=== PATIENT | male | born 1955 | race Hispanic/Latino ===

== ENCOUNTER 2018-05-15 10:33 | Inpatient (IN) | payer SELFPAY ==
[2018-05-15] MEDS ORDERED: NA CHLORIDE 0.9% 1,000 ML ONE ×2 (10:54→14:34)
[2018-05-15] MEDS ORDERED: ONDANSETRON 4 MG/2 ML VIAL ONE (11:10)
[2018-05-15] MEDS ORDERED: MORPHINE 4 MG/ML SYR ONE (11:10)
[2018-05-15] MEDS ORDERED: FAMOTIDINE 20 MG/2 ML VIAL IV ONE (11:10)
[2018-05-15 11:13] LABS: Absolute Monocytes 1.1 K/uL (0.1-1.3); Absolute Neutrophil 9.9 K/uL (1.8-8.0); Basophils % 0.2 % (0-1.3); Eosinophils % 0.4 % (0-4.4); Hematocrit 46.1 % (39.6-49.0); Lymphocytes % 14.9 % (15.3-44.8); MCH 34.9 pg (27.0-35.0); MCV 98.7 fL (80-100); MPV 7.1 fL (7.6-11.3); Monocytes % 8.7 % (3.3-12.3); RBC Red Blood Cell Count 4.67 M/uL (4.33-5.43)
[2018-05-15 11:26] LABS: Protime INR 1.09
[2018-05-15 11:27] LABS: ALT/SGPT 47 U/L (12-78); AST/SGOT 28 U/L (15-37); Albumin 4.6 g/dL (3.4-5.0); Alkaline Phosphatase 123 U/L (45-117); BUN Blood Urea Nitrogen 23 mg/dL (7-18); Bicarbonate 25 mmol/L (21-32); Bilirubin Direct 0.3 mg/dL (0-0.2); Bilirubin Total 0.9 mg/dL (0.2-1.0); Glucose Level 141 mg/dL (74-106); Lipase 79 U/L (73-393); Magnesium 2.7 mg/dL (1.8-2.4); NT PRO-BNP 93 pg/mL (<125); Potassium 3.5 mmol/L (3.5-5.1); Protein, Total 9.3 g/dL (6.4-8.2); Sodium Level 139 mmol/L (136-145); Troponin (Emerg Dept Use Only) < 0.02 ng/mL (0.0-0.045)
--- NOTE | 2018-05-15 11:42 | RAD REPORT ---
EXAM DESCRIPTION: RAD - Chest Single View - 05/15/2018 11:28 am CLINICAL HISTORY: ABDOMINAL DISTENTION Chest pain. COMPARISON: No comparisons FINDINGS: Portable technique limits examination quality. The lungs are grossly clear. The heart is normal in size. No displaced fractures. IMPRESSION: No acute intrathoracic process suspected.
--- NOTE | 2018-05-15 13:09 | RAD REPORT ---
EXAM DESCRIPTION: CTAbdomen Pelvis W Contrast - 05/15/2018 12:54 pm CLINICAL HISTORY: Abdominal pain. ABD PAIN COMPARISON: No comparisons TECHNIQUE: Biphasic CT imaging of the abdomen and pelvis was performed with 100 ml non-ionic IV cont rast. All CT scans are performed using dose optimization technique as appropriate and may include automated exposure control or mA/KV adjustment according to patient size. FINDINGS: A few small nonspecific pulmonary nodules are seen in the lung bases, most prominent in th e right lower lobe measuring 5 mm.Linear subsegmental atelectasis is also present in both lung bases. Small hiatal hernia is noted. Diffuse fatty liver is noted with cholecystectomy clips. The spleen, pancreas, adrenal glands and kid neys are within normal limits. Multiple dilated small bowel loops are present in the mid abdomen this is compatible with mechanical small bowel obstruction. Point of transition is suspected in the right lower quadrant region (image 6 ). No free intraperitoneal air. No significant free fluid collections or abscess. The appendix is not well seen. Significant fecal retention is seen in the colon. No suspicious bony findings. IMPRESSION: Moderate mechanical small bowel obstruction is present as described. No evidence of free air or abscess.
--- NOTE | 2018-05-15 13:31 | ER ---
Nurse's Notes [facility] Name: Kana Richmond Age: 62 yrs Sex: Male : 1955 Arrival Date: 05/15/2018 Time: 10:37 Bed 8 Private MD: None, None Diagnosis: Abdominal tenderness;Other intestinal obstruction-mechanical small bowel Presentation: 05/15 10:46 Presenting complaint: Patient states: Abdominal pain in umbilical area and vomiting ph since last night, denies diarrhea or fever. Transition of care: patient was not received from another setting of care. Onset of symptoms was May 15, 2018. Risk Assessment: Do you want to hurt yourself or someone else? Patient reports no desire to harm self or others. Initial Sepsis Screen: Does the patient meet any 2 criteria? No. Patient's initial sepsis screen is negative. Does the patient have a suspected source of infection? No. Patient's initial sepsis screen is negative. Care prior to arrival: None. 10:46 Method Of Arrival: Ambulatory ph 10:46 Acuity: SABRINA 3 ph Historical: - Allergies: 10:47 No Known Allergies; ph - PMHx: 10:47 Hypertension; ph - PSHx: 10:47 None; ph - Immunization history:: Adult Immunizations unknown. - Family history:: not pertinent. - Social history:: Smoking status: Patient/guardian denies using tobacco. - Ebola Screening: : Patient negative for fever greater than or equal to 101.5 degrees Fahrenheit, and additional compatible Ebola Virus Disease symptoms Patient denies exposure to infectious person Patient denies travel to an Ebola-affected area in the 21 days before illness onset No symptoms or risks identified at this time. Screenin:55 Abuse screen: Denies threats or abuse. Denies injuries from another. Nutritional sg screening: No deficits noted. On no prescribed diet. Tuberculosis screening: No symptoms or risk factors identified. Never had TB. Fall Risk None identified. Assessment: 10:50 General: Appears in no apparent distress. well groomed, well developed, well nourished, sg Behavior is calm, cooperative, appropriate for age. 10:50 Pain: Complains of pain in left upper quadrant and right upper quadrant and epigastric sg area Quality of pain is described as aching, pressure. Neuro: No deficits noted. Cardiovascular: Heart tones S1 S2 present Patient's skin is warm and dry. Chest pain is denied. Respiratory: Airway Respiratory effort is even, unlabored, Respiratory pattern is regular, symmetrical. GI: Bowel sounds present X 4 quads. Abd is soft X 4 quads Abdomen is tender to palpation in right upper quadrant and left upper quadrant. Vital Signs: 10:46 BP 139 / 96; Pulse 112; Resp 20; Temp 98.0; Pulse Ox 97% on R/A; Weight 63.5 kg; Pain ph 8/10; 13:31 BP 138 / 82; Pulse 82; Resp 17; Temp 98.0; Pulse Ox 98% on R/A; Pain 2/10; sg 15:05 BP 142 / 100; Pulse 97; Resp 17 S; Pulse Ox 97% on R/A; rv ED Course: 10:37 Patient arrived in ED. sb2 10:37 None, None is Private Physician. sb2 10:43 Bharat Cerna MD is Attending Physician. alden 10:44 Jose Alonso, HECTOR is Primary Nurse. sg 10:46 Triage completed. ph 10:47 Arm band placed on Patient placed in an exam room. ph 10:55 Patient has correct armband on for positive identification. Bed in low position. Call hb light in reach. Side rails up X2. splitter tender on. Pulse ox on. NIBP on. Warm blanket given. Head of bed elevated. 10:55 No provider procedures requiring assistance completed. sg 10:58 Initial lab(s) drawn, by la, sent to lab. Inserted saline lock: 22 gauge in right jb1 forearm, using aseptic technique. Blood collected. 10:58 EKG done, by technician preventative medicine. reviewed by Bharat Cerna MD. jb1 11:27 X-ray completed. Portable x-ray completed in exam room. Patient tolerated procedure jb2 well. 11:28 XRAY Chest (1 view) In Process Unspecified. EDMS 12:[address] via wheelchair. nj 12:54 Patient moved back from CT. nj 12:55 CT Abd/Pelvis - W/Contrast In Process Unspecified. EDMS 13:27 Elise Valenzuela MD is Hospitalizing Provider. alden 14:18 Patient admitted, IV remains in place. intact. sg 14:19 NGT: inserted 14 Fr. via left nare. verified placement of air over stomach, verified sg return of gastric contents, to intermittent suction. Returned gastric contents. Returned bile. Patient tolerated well. 14:25 Carla Pro MD is Hospitalizing Provider. alden Administered Medications: 11:13 Drug: NS 0.9% 1000 ml Route: IV; Rate: 125 ml/hr; Site: right antecubital; sg 11:13 Drug: morphine 4 mg Route: IVP; Site: right antecubital; sg 12:10 Follow up: Response: No adverse reaction hb 11:13 Drug: Zofran 4 mg Route: IVP; Site: right antecubital; sg 12:10 Follow up: Response: No adverse reaction; Marked relief of symptoms hb 11:13 Drug: Pepcid 20 mg Route: IVP; Site: right antecubital; sg 12:13 Follow up: Response: No adverse reaction hb 14:30 Drug: Cipro 400 mg Volume: 200 ml; Route: IVPB; Infused Over: 60 mins; Site: right hb antecubital; 14:30 Drug: Flagyl 500 mg Volume: 100 ml; Route: IVPB; Rate: 200 ml/hr; Infused Over: 30 hb mins; Site: right antecubital; 14:31 Drug: NS 0.9% 1000 ml Route: IV; Rate: 1 bolus; Site: right antecubital; hb Output: 14:20 Gastric: 300ml (NGT); Total: 300ml. sg Outcome: 13:30 Decision to Hospitalize by Provider. [facility] 15:00 Admitted to Med/surg accompanied by tech, family with patient, via stretcher, room 407, sg Report called to HECTOR Barrios 15:00 Condition: good 15:00 Instructed on the need for admit, safety practices, Demonstrated understanding of instructions, follow-up care. 15:05 Patient left the ED. rv Signatures: Dispatcher [employer] EDMS Satinder Rosenberg jb1 Jose Alonso RN RN sg Anderson, Corey, MD MD cha Buechter, Jesse jb2 Anayeli Currie RN RN Cristy Zaman RN RN hb Jordan, Nathan nj Billeau, Sheri sb2 Riccardo Smith RN RN rv Corrections: (The following items were deleted from the chart) 14:06 13:50 General: Appears in no apparent distress. well groomed, well developed, well sg nourished, Behavior is calm, cooperative, appropriate for age, sg
--- NOTE | 2018-05-15 13:31 | EDPHYS ---
Physician Documentation [facility] Name: Kana Richmond Age: 62 yrs Sex: Male : 1955 Arrival Date: 05/15/2018 Time: 10:37 Bed 8 Private MD: None, None ED Physician Bharat Cerna HPI: 05/15 10:57 This 62 yrs old Male presents to ER via Ambulatory with complaints of Abd Pain alden > 50 y/o. 10:57 The patient presents with abdominal pain in the upper abdomen, in the lower abdomen. alden Onset: The symptoms/episode began/occurred 1 day(s) ago. The symptoms do not radiate. Associated signs and symptoms: none. The symptoms are described as constant, crampy. Modifying factors: The symptoms are alleviated by nothing, the symptoms are aggravated by nothing. Severity of pain: At its worst the pain was moderate. The patient has not experienced similar symptoms in the past. Historical: - Allergies: 10:47 No Known Allergies; ph - PMHx: 10:47 Hypertension; ph - PSHx: 10:47 None; ph - Immunization history:: Adult Immunizations unknown. - Family history:: not pertinent. - Social history:: Smoking status: Patient/guardian denies using tobacco. - Ebola Screening: : Patient negative for fever greater than or equal to 101.5 degrees Fahrenheit, and additional compatible Ebola Virus Disease symptoms Patient denies exposure to infectious person Patient denies travel to an Ebola-affected area in the 21 days before illness onset No symptoms or risks identified at this time. ROS: 10:57 Constitutional: Negative for fever, chills, and weight loss, Eyes: Negative for injury, alden pain, redness, and discharge, ENT: Negative for injury, pain, and discharge, Neck: Negative for injury, pain, and swelling, Cardiovascular: Negative for chest pain, palpitations, and edema, Respiratory: Negative for shortness of breath, cough, wheezing, and pleuritic chest pain, Back: Negative for injury and pain, : Negative for injury, bleeding, discharge, and swelling, MS/Extremity: Negative for injury and deformity, Skin: Negative for injury, rash, and discoloration, Neuro: Negative for headache, weakness, numbness, tingling, and seizure, Psych: Negative for depression, anxiety, suicide ideation, homicidal ideation, and hallucinations, Allergy/Immunology: Negative for hives, rash, and allergies, Endocrine: Negative for neck swelling, polydipsia, polyuria, polyphagia, and marked weight changes, Hematologic/Lymphatic: Negative for swollen nodes, abnormal bleeding, and unusual bruising. 10:57 Abdomen/GI: Positive for abdominal pain, of the epigastric area, right upper quadrant and left upper quadrant. Exam: 10:57 Constitutional: This is a well developed, well nourished patient who is awake, alert, alden and in no acute distress. Head/Face: Normocephalic, atraumatic. Eyes: Pupils equal round and reactive to light, extra-ocular motions intact. Lids and lashes normal. Conjunctiva and sclera are non-icteric and not injected. Cornea within normal limits. Periorbital areas with no swelling, redness, or edema. ENT: Nares patent. No nasal discharge, no septal abnormalities noted. Tympanic membranes are normal and external auditory canals are clear. Oropharynx with no redness, swelling, or masses, exudates, or evidence of obstruction, uvula midline. Mucous membranes moist. Neck: Trachea midline, no thyromegaly or masses palpated, and no cervical lymphadenopathy. Supple, full range of motion without nuchal rigidity, or vertebral point tenderness. No Meningismus. Chest/axilla: Normal chest wall appearance and motion. Nontender with no deformity. No lesions are appreciated. Cardiovascular: Regular rate and rhythm with a normal S1 and S2. No gallops, murmurs, or rubs. Normal PMI, no JVD. No pulse deficits. Respiratory: Lungs have equal breath sounds bilaterally, clear to auscultation and percussion. No rales, rhonchi or wheezes noted. No increased work of breathing, no retractions or nasal flaring. Back: No spinal tenderness. No costovertebral tenderness. Full range of motion. Skin: Warm, dry with normal turgor. Normal color with no rashes, no lesions, and no evidence of cellulitis. MS/ Extremity: Pulses equal, no cyanosis. Neurovascular intact. Full, normal range of motion. Neuro: Awake and alert, GCS 15, oriented to person, place, time, and situation. Cranial nerves II-XII grossly intact. Motor strength 5/5 in all extremities. Sensory grossly intact. Cerebellar exam normal. Normal gait. Psych: Awake, alert, with orientation to person, place and time. Behavior, mood, and affect are within normal limits. 10:57 Abdomen/GI: Inspection: abdomen appears normal, Bowel sounds: normal, Palpation: moderate abdominal tenderness, in the umbilical area, Liver: no appreciated palpable abnormalities, Hernia: not appreciated. Vital Signs: 10:46 BP 139 / 96; Pulse 112; Resp 20; Temp 98.0; Pulse Ox 97% on R/A; Weight 63.5 kg; Pain ph 8/10; 13:31 BP 138 / 82; Pulse 82; Resp 17; Temp 98.0; Pulse Ox 98% on R/A; Pain 2/10; sg 15:05 BP 142 / 100; Pulse 97; Resp 17 S; Pulse Ox 97% on R/A; rv MDM: 10:43 Patient medically screened. [facility] 10:59 Data reviewed: vital signs, nurses notes, lab test result(s), EKG, radiologic studies, [facility] CT scan, plain films. 05/15 10:43 Order name: Basic Metabolic Panel; Complete Time: 12:46 [facility] 05/15 10:43 Order name: CBC with Diff; Complete Time: 12:46 [facility] 05/15 10:43 Order name: LFT's; Complete Time: 12:46 [facility] 05/15 10:43 Order name: Magnesium; Complete Time: 12:46 [facility] 05/15 10:43 Order name: NT PRO-BNP; Complete Time: 12:46 [facility] 05/15 10:43 Order name: PT-INR; Complete Time: 12:46 [facility] 05/15 10:43 Order name: Troponin (emerg Dept Use Only); Complete Time: 12:46 [facility] 05/15 10:43 Order name: XRAY Chest (1 view); Complete Time: 12:46 [facility] 05/15 10:43 Order name: Lipase; Complete Time: 12:46 [facility] 05/15 10:44 Order name: Urine Culture [facility] 05/15 10:57 Order name: CT Abd/Pelvis - W/Contrast; Complete Time: 13:22 [facility] 05/15 10:43 Order name: EKG; Complete Time: 10:45 [facility] 05/15 10:43 Order name: Cardiac monitoring; Complete Time: 10:47 [facility] 05/15 10:43 Order name: EKG - Nurse/Tech; Complete Time: 10:56 [facility] 05/15 10:43 Order name: IV Saline Lock; Complete Time: 10:56 [facility] 05/15 10:43 Order name: Labs collected and sent; Complete Time: 10:57 [facility] 05/15 10:43 Order name: O2 Per Protocol; Complete Time: 10:47 [facility] 05/15 10:43 Order name: O2 Sat Monitoring; Complete Time: 10:47 [facility] 05/15 13:25 Order name: NG Tube; Complete Time: 14:02 [facility] 05/15 13:35 Order name: CONS Physician Consult EDMS Administered Medications: 11:13 Drug: NS 0.9% 1000 ml Route: IV; Rate: 125 ml/hr; Site: right antecubital; sg 11:13 Drug: morphine 4 mg Route: IVP; Site: right antecubital; sg 12:10 Follow up: Response: No adverse reaction hb 11:13 Drug: Zofran 4 mg Route: IVP; Site: right antecubital; sg 12:10 Follow up: Response: No adverse reaction; Marked relief of symptoms hb 11:13 Drug: Pepcid 20 mg Route: IVP; Site: right antecubital; sg 12:13 Follow up: Response: No adverse reaction hb 14:30 Drug: Cipro 400 mg Volume: 200 ml; Route: IVPB; Infused Over: 60 mins; Site: right hb antecubital; 14:30 Drug: Flagyl 500 mg Volume: 100 ml; Route: IVPB; Rate: 200 ml/hr; Infused Over: 30 hb mins; Site: right antecubital; 14:31 Drug: NS 0.9% 1000 ml Route: IV; Rate: 1 bolus; Site: right antecubital; hb Disposition: 05/15/18 13:30 Hospitalization ordered by Carla Pro for Inpatient Admission. Preliminary diagnosis are Abdominal tenderness, Other intestinal obstruction - mechanical small bowel. - Bed requested for Telemetry/MedSurg (Inpatient). - Status is Inpatient Admission. rv - Condition is Fair. - Problem is new. - Symptoms have improved. UTI on Admission? No Signatures: Dispatcher [employer] EDMS Rose Jacob RN RN dw Gay, Steven, RN RN Bharat Cerna MD MD cha Hall, Patricia, RN RN Cristy Zaman RN RN Luis, Riccardo, RN RN rv Corrections: (The following items were deleted from the chart) 14:25 13:30 Hospitalization Ordered by Elise Valenzuela MD for Inpatient Admission. Preliminary alden diagnosis is Abdominal tenderness; Other intestinal obstruction - mechanical small bowel. Bed requested for Telemetry/MedSurg (Inpatient). Status is Inpatient Admission. Condition is Fair. Problem is new. Symptoms have improved. UTI on Admission? No. alden 14:27 14:25 05/15/2018 13:30 Hospitalization Ordered by Carla Pro MD for Inpatient dw Admission. Preliminary diagnosis is Abdominal tenderness; Other intestinal obstruction - mechanical small bowel. Bed requested for Telemetry/MedSurg (Inpatient). Status is Inpatient Admission. Condition is Fair. Problem is new. Symptoms have improved. UTI on Admission? No. alden 15:05 14:27 05/15/2018 13:30 Hospitalization Ordered by Carla Pro MD for Inpatient rv Admission. Preliminary diagnosis is Abdominal tenderness; Other intestinal obstruction - mechanical small bowel. Bed requested for Telemetry/MedSurg (Inpatient). Status is Inpatient Admission. Condition is Fair. Problem is new. Symptoms have improved. UTI on Admission? No. dw
[2018-05-15] MEDS ORDERED: ACETAMINOPHEN 650MG/RECT SUPP PR PRN (14:03)
[2018-05-15] MEDS ORDERED: ONDANSETRON 4 MG/2 ML VIAL IV PRN (14:03)
[2018-05-15] MEDS ORDERED: CIPROFLOXACIN 400mg IV 400 MG/200 ML BAG IV ONE (14:31)
[2018-05-15] MEDS ORDERED: METRONIDAZOLE 500mg IVPB 500 MG/100 ML BAG IV ONE (14:31)
--- NOTE | 2018-05-15 15:01 | EKG ---
Test Date: 2018-05-15 Test Time: 10:51:04 Internet Technology Manager: EMILY MEASUREMENT RESULTS: Intervals: Rate: 105 GA: 172 QRSD: 80 QT: 346 QTc: 457 [place]: P: 63 GA: 172 QRS: 87 T: 19 INTERPRETIVE STATEMENTS: Sinus tachycardia Otherwise normal ECG No previous ECG available for comparison Electronically Signed On 05-15-18 15:00:47 BLUEPRINT MACHINE OPERATOR by Jovon Romano
[2018-05-15] MEDS: METRONIDAZOLE 500mg IVPB 500 MG/100 ML BAG IV SCH (15:50)
[2018-05-15] MEDS ORDERED: INFLUENZA VACCINE (for 3y+) 0.5 ML DOSE IMVAC ONE (17:00)
[2018-05-15] MEDS: D5.45NS W/KCL 20MEQ 1,000 ML IV SCH (17:37)
[2018-05-15] MEDS: ENOXAPARIN 40 MG/0.4 ML SQ SCH (17:37)
[2018-05-15] MEDS ORDERED: MORPHINE 2 MG/ML SYR IV PRN (17:39)
[2018-05-15] MEDS: CIPROFLOXACIN 400mg IV 400 MG/200 ML BAG IV SCH (20:30)
[2018-05-16] MEDS: D5.45NS W/KCL 20MEQ 1,000 ML IV SCH ×3 (01:00→19:58)
[2018-05-16] MEDS: METRONIDAZOLE 500mg IVPB 500 MG/100 ML BAG IV SCH ×3 (01:02→17:37)
--- NOTE | 2018-05-16 01:58 | HP ---
Date of Admission: 05/15/2018 Code Status: Full Consultants: Dr. Iraheta with General Surgery. Chief Complaint: Abdominal pain, nausea, vomiting. History Of Present Illness: The patient is a 62-year-old male with past medical history of hypertension, hyperlipidemia, comes in to the hospital for abdominal pain, nausea, vomiting, ongoing since the last night. The patient states the abdominal pain is sudden in onset, nonradiating, sharp, not associated with any unusual foods or travel outside the country. The patient has had some nausea and vomiting. No fevers or chills. No blood in the stool. The patient's symptoms are constant and progressively worsening. On arrival to the ER, his workup showed elevated white count with left shift and a CT scan showed a small bowel obstruction. The patient was referred for admission. Started on IV antibiotics, given 2 L normal saline. When seen in the ER, the patient was awake, alert, oriented x3. He is in mild distress. He has limited Estonian proficiency and family at the bedside. Past Medical History: Hypertension, hyperlipidemia. Surgical History: Appendectomy. Cholecystectomy. Family History: The patient denies any history of premature coronary artery disease. Allergies: NO KNOWN DRUG ALLERGIES. Medications: List reviewed. Social History: The patient denies any smoking. Does drink alcohol from time to time. Beer is the drink of choice. No illicit drug use. The patient independent in activities of daily living. Lives with his son. Review of Systems: An 11-point system reviewed, negative except as per HPI. Physical Examination: Vital Signs: Blood pressure 139/96, pulse 112, respirations 20, temperature 98.2, O2 97% on room air. General: Awake, alert, oriented x3, in some moderate distress, ill-appearing male. HEENT: Normocephalic, atraumatic. PERRLA, EOMI. Dry mucous membranes. Oropharynx is clear. Conjunctiva is anicteric. Neck: Supple. No JVD. Trachea midline. CV: S1, S2. Regular rate and rhythm. Peripheral pulses present. No murmurs. Respiratory: Moving air well bilaterally. No wheezing or stridor. No use of accessory muscles. Gastrointestinal: Abdomen is soft. No tenderness to palpation present. No rebound or guarding. Mildly distended. Bowel sounds hypoactive. Extremities: No clubbing, cyanosis, or edema. No calf tenderness. Neuro: Cranial nerves 2 through 12 intact grossly. No focal neurological deficit. Speech is normal. Strength is 5/5 bilateral upper and lower extremities. Skin: No rashes. Normal skin turgor. Psych: Deferred. Laboratory Data: WBC 13.1, H and H 16.3/46.1, platelets 239, neutrophils 75%. INR 1.09. Sodium 139, potassium 3.5, chloride 101, CO2 25, BUN 23, creatinine 1.2, glucose 141, calcium 9.8, magnesium 2.7, AST 28, ALT 47, lipase 79. Imaging Studies: CT scan abdomen and pelvis with contrast shows moderate mechanical small bowel obstruction present. No evidence of free air or abscess. Diffuse fatty liver noted with cholecystectomy clips. Few small nonspecific pulmonary nodules seen in the lung base, most prominent in the right lower lobe measuring 5 mm. Chest x-ray, personally reviewed, shows acute intrathoracic process suspected. Assessment And Plan: A 62-year-old male with: 1. Acute abdominal pain secondary to #2 small bowel obstruction. 2. Small bowel obstruction. Continue with NG tube suctioning and the patient has been consulted. We will keep n.p.o., pain control, conservative management. 3. Neutrophilic leukocytosis, will cover with antibiotics empirically. 4. Pulmonary nodules, right lung base, nonspecific. 5. Diffuse fatty liver disease. 6. Gastrointestinal and deep venous thrombosis prophylaxis, PPI and Lovenox. 7. Essential hypertension, stable. We will use p.r.n. medications through the IV. 8. Mixed hyperlipidemia, currently n.p.o. We will hold statin. Plan: Admit the patient to Med-Surg, place as inpatient. Length of stay greater than 2 midnights. JOSE Voice ID: [id number] MTDD
[2018-05-16 05:48] LABS: Absolute Lymphocytes (CBC) 1.7 K/uL (0.7-4.9); Absolute Monocytes 0.7 K/uL (0.1-1.3); Absolute Neutrophil 3.3 K/uL (1.8-8.0); Basophils % 0.5 % (0-1.3); Eosinophils % 12.1 % (0-4.4); Hematocrit 39.7 % (39.6-49.0); Lymphocytes % 26.4 % (15.3-44.8); MCH 35.4 pg (27.0-35.0); MCV 99.9 fL (80-100); MPV 7.6 fL (7.6-11.3); RBC Red Blood Cell Count 3.98 M/uL (4.33-5.43)
[2018-05-16 06:06] LABS: ALT/SGPT 38 U/L (12-78); AST/SGOT 21 U/L (15-37); Albumin 3.3 g/dL (3.4-5.0); Alkaline Phosphatase 92 U/L (45-117); BUN Blood Urea Nitrogen 16 mg/dL (7-18); Bicarbonate 28 mmol/L (21-32); Bilirubin Total 0.8 mg/dL (0.2-1.0); Glucose Level 133 mg/dL (74-106); Magnesium 2.5 mg/dL (1.8-2.4); Phosphorus 2.4 mg/dL (2.5-4.9); Potassium 3.7 mmol/L (3.5-5.1); Protein, Total 7.1 g/dL (6.4-8.2); Sodium Level 142 mmol/L (136-145)
[2018-05-16] MEDS: CIPROFLOXACIN 400mg IV 400 MG/200 ML BAG IV SCH ×2 (09:01→19:56)
[2018-05-16] MEDS: ENOXAPARIN 40 MG/0.4 ML SQ SCH (09:02)
--- NOTE | 2018-05-16 11:56 | RAD REPORT ---
EXAM DESCRIPTION: RAD - Abdomen Acute Series - 05/16/2018 10:04 am CLINICAL HISTORY: Abdominal pain FINDINGS: A nasogastric tube has its tip in the proximal stomach. It lies 4 centimeters from the GE junction. Dilated small bowel has diminished in caliber since the prior CAT scan. Small-bowel loops are now mil dly dilated. Free air is not seen beneath the diaphragm
--- NOTE | 2018-05-16 13:47 | CON ---
Date of Consultation: 05/15/2018 Reason: Abdominal pain, nausea, and vomiting. History Of Present Illness: The patient is a 62-year-old gentleman, presents for 2-day history of mi ld abdominal pain associated with nausea and vomiting. He came to the ER and was found to have a sma ll bowel obstruction. I was consulted. He states that he has never had issues like this. He has cleary d an open appendectomy and cholecystectomy in the past and he is not having any pain right now. He i s passing gas, but has not had a bowel movement since Monday. No sore throat, runny nose, cough, hea daches, or dizziness. No chest pain. No fever or chills and he has never had a colonoscopy and ther e is no family history of colorectal malignancy. No history of constipation or diarrhea. No bloody stools. No dysuria or hematuria. Review of Systems: Otherwise, unremarkable. Past Medical History: Hypertension, hyperlipidemia. Past Surgical History: Appendectomy, cholecystectomy. Allergies: NO ALLERGIES. Social History: The patient does not smoke. Drinks occasionally. Family History: Noncontributory. Physical Examination: Vital Signs: Stable. He is afebrile. He is awake, alert, and oriented x3. He; however, does not s peak [place] and there was a day care center director present in the room during my evaluation. Head and Neck: Cranial nerves 2 through 12 are grossly within normal limits. No neck masses. No JV D. Throat clear. Neck is supple. Chest: Clear. Heart: S1, S2. Abdomen: Soft, nondistended, nontender. Positive bowel sounds. Extremities: Adequately perfused. Nontender. Neuro: Nonfocal. Laboratory Data: CT of the abdomen and pelvis shows obstruction with possible transition point in th e right lower quadrant, but there is moderate amount of stool in the colon as well. No free air. No free fluid. His white count was elevated yesterday at 13.1, today is normal at 6.5, and there is no left shift. Coags are within normal limits. Chemistry reviewed. Phosphorus is slightly low being replaced. Otherwise, unremarkable. Assessment: Likely partial small bowel obstruction secondary to adhesions. Recommendations: Continue n.p.o., NG tube, IV fluids, IV antibiotics. We will get an abdominal x-ra y today. Should it be improving, then we will clamp the NG tube. Start him on clear liquids as he i s passing gas. If it is not, we may need further bowel rest and should he not improved, then may nee d a small bowel series and eventual surgical intervention. The plan of care discussed in detail with the patient's son and the patient via day care center director, they understand. FAZAL/JESSICA Voice ID: [id number] Report ID: [id number]
[2018-05-16] MEDS ORDERED: HYDRALAZINE HCL 20 MG/ML VIAL IV PRN (14:34)
--- NOTE | 2018-05-16 19:06 | PN ---
Date of Progress Note: 05/16/2018 Subjective: The patient seen and examined, chart reviewed, and case discussed with RN and Dr. Iraheta. The patient states his abdominal pain is significantly improved. However, still having some nausea . Review of Systems: Negative except as above. Medications: List reviewed. Physical Examination: Vital Signs: Temperature 97.7, heart rate 76, blood pressure 184/88, respirations 18, O2 98% on room air. GENERAL: Awake, alert, oriented x3. Some mild distress due to pain. Elderly male. CV: S1 and S2. Regular rate and rhythm. Peripheral pulses present. Respiratory: Moving air well bilaterally. No wheezing or stridor. Gastrointestinal: Abdomen is soft. Mild tenderness to palpation. Somewhat distended. Bowel sounds hypoactive. Extremities: No clubbing, cyanosis, edema. Neurologic: Nonfocal. Laboratory Data: Sodium 142, potassium 3.7, chloride 107, CO2 28, BUN 16, creatinine 0.7, glucose 13 3, calcium 8.2, phosphorus 2.4, magnesium 2.5. WBC 6.5, H and H 14.1 and 39.7, platelets 204, neutro phils 50%. Urine culture is pending. Acute abdominal series, personally reviewed shows dilated smal l bowel has diminished in caliber since prior CAT scan. Small bowel loops are mildly dilated. Free air not seen beneath the diaphragm. Assessment And Plan: A 62-year-old male with: 1.Small bowel obstruction. We will continue with conservative treatment. We will clamp NG tube. S tart on ice chips. Appreciate Dr. Iraheta's input. We will likely DC NG tube tomorrow if the patient continues to have gas. Encourage ambulation. 2.Acute abdominal pain secondary to above, now improving. 3.Neutrophilic leukocytosis, resolved. We will follow up with urine culture. 4.Right lung base pulmonary nodules, nonspecific. We will need repeat CT scan in 1 year. 5.Diffuse fatty liver disease. The patient was counseled. 6.Essential hypertension, uncontrolled. We will add IV medications. 7.Hyperlipidemia. Hold statin due to n.p.o. status. 8.Gastrointestinal and deep venous thrombosis prophylaxis with PPI and Lovenox. Plan: Continue antibiotics and encourage ambulation as tolerated. Diet; clear liquid diet. Likely clamp NG tube in a.m. Likely discharge in the next 24-48 hours depending on clinical improvement. /MODL Voice ID: [id number] Report ID: [id number]
[2018-05-17] MEDS: METRONIDAZOLE 500mg IVPB 500 MG/100 ML BAG IV SCH ×3 (01:05→17:00)
[2018-05-17 06:06] LABS: Absolute Monocytes 0.8 K/uL (0.1-1.3); Absolute Neutrophil 4.1 K/uL (1.8-8.0); Basophils % 0.5 % (0-1.3); Eosinophils % 10.1 % (0-4.4); Hematocrit 40.7 % (39.6-49.0); Lymphocytes % 25.5 % (15.3-44.8); MCH 35.3 pg (27.0-35.0); MCV 100.4 fL (80-100); MPV 7.1 fL (7.6-11.3); Monocytes % 10.6 % (3.3-12.3); RBC Red Blood Cell Count 4.06 M/uL (4.33-5.43)
[2018-05-17 06:11] LABS: ALT/SGPT 36 U/L (12-78); AST/SGOT 22 U/L (15-37); Albumin 3.3 g/dL (3.4-5.0); Alkaline Phosphatase 83 U/L (45-117); BUN Blood Urea Nitrogen 9 mg/dL (7-18); Bicarbonate 26 mmol/L (21-32); Bilirubin Total 0.6 mg/dL (0.2-1.0); Glucose Level 131 mg/dL (74-106); Potassium 3.6 mmol/L (3.5-5.1); Protein, Total 6.9 g/dL (6.4-8.2); Sodium Level 139 mmol/L (136-145)
[2018-05-17] MEDS: D5.45NS W/KCL 20MEQ 1,000 ML IV SCH ×2 (07:00→10:40)
[2018-05-17] MEDS: ENOXAPARIN 40 MG/0.4 ML SQ SCH (08:32)
[2018-05-17] MEDS: CIPROFLOXACIN 400mg IV 400 MG/200 ML BAG IV SCH (08:32)
--- NOTE | 2018-05-17 11:04 | PN ---
Date of Progress Note: 05/17/2018 Subjective: The patient is awake and alert. Had small bowel movement, passing gas. Tolerating pari r liquids. NG residual is minimal. Objective: Vital signs: Stable. Afebrile. Abdomen: Completely benign. Laboratory Data: Reviewed. Assessment: Small bowel obstruction, resolved. Recommendation: Discontinue NG tube. Advanced full liquids if tolerated. Clear for discharge from Surgery standpoint. /MODL Voice ID: [id number] Report ID: [id number]
[2018-05-17] MEDS ORDERED: AMLODIPINE 10 MG TAB PO SCH (15:16)
--- NOTE | 2018-05-17 16:40 | PN ---
Subjective: Case discussed with RN and Dr. Iraheta. The patient is feeling better. Tolerating a pari r liquid diet, passing gas. No bowel movement yet. The patient denies any further nausea or vomitin g. His NG tube has been clamped. Review of Systems: Negative except as above. Medications: List reviewed. Physical Examination: Vital Signs: Temperature 99.3, heart rate 86, blood pressure is 137/86, respirations 16, O2 94% on r oom air. General: Awake, alert, oriented x3. No acute distress. Elderly male. CV: S1 and S2. Peripheral pulses present. No murmurs. Regular rate and rhythm. Respiratory: Moving air well bilaterally. No wheezing. Gastrointestinal: Abdomen is soft. No tenderness. Mild distention. Positive bowel sounds. Hypoac tive. Extremities: No clubbing, cyanosis, or edema. Neurologic: Nonfocal. Laboratory Data: Sodium 139, potassium 3.6, chloride 106, CO2 26, BUN 9, creatinine 0.8, glucose 131 , calcium 8.1. WBC 7.7, H and H 14.3 and 40.7, MCV is 100.4, platelets 195. Assessment And Plan: A 62-year-old male with: 1.Small bowel obstruction. We will discontinue NG tube and start on full liquid. Appreciate Dr. Riki guzman's input. Encourage ambulation. 2.Acute abdominal pain secondary to the above, resolved. 3.Neutrophilic leukocytosis, resolved. Urine culture pending. 4.Right lung base pulmonary nodule, nonspecific. We will need repeat CT scan in 1 year. 5.Diffuse fatty liver disease. Repeat imaging in 6 to 12 months. The patient was counseled regardi ng diet and exercise regimen. 6.Essential hypertension, uncontrolled. Continue IV medications p.r.n. 7.Hyperlipidemia. 8.We will resume statin. 9.Gastrointestinal and deep venous thrombosis prophylaxis with PPI and Lovenox. Plan: Discontinue NG tube, advanced diet if tolerating. May be able to be discharged later today ve rsus tomorrow depending on clinical response. We will discontinue IV fluids. SA/MODL Voice ID: [id number] Report ID: [id number]
[2018-05-17] MEDS ORDERED: ATORVASTATIN 20 MG TAB PO SCH (21:00)
--- NOTE | 2018-05-18 05:23 | DS ---
Date of Discharge: 05/17/2018 [employer] Worker: Arnold Iraheta M.D. Procedures: None. Admitting Diagnoses: 1.Acute abdominal pain. 2.Small-bowel obstruction. 3.Neutrophilic leukocytosis. 4.Pulmonary nodule, right lung base, nonspecific. 5.Diffuse fatty liver disease. 6.Essential hypertension. 7.Mixed hyperlipidemia. Discharge Diagnoses: 1.Small-bowel obstruction, resolving. 2.Acute abdominal pain secondary to above, resolved. 3.Neutrophilic leukocytosis, resolved. 4.Right lung base pulmonary nodule, nonspecific. Repeat CT scan in 1 year. 5.Diffuse fatty liver disease. Counseled. 6.Essential hypertension, not well controlled. 7.Mixed hyperlipidemia. Continue statin. Hospital Course: The patient is a 62-year-old male who came in to the hospital due to abdominal pain . The patient was worked up, found to have elevated white blood cell count. Imaging studies showed small-bowel obstruction. The patient was treated with conservative management. NG tube was placed. The patient did have a significant amount of output from the NG tube. The patient began to feel bet ter. Dr. Iraheta with General Surgery was also consulted. The patient was passing gas; and therefore, tube was clamped; and the patient was then able to tolerate a diet. His NG tube was removed. He di d not have any further nausea or vomiting. His abdominal pain resolved. He was passing gas and actu ally had a small bowel movement. The patient was encouraged to ambulate. Of note, his blood pressur e was uncontrolled. He does take amlodipine at home. The patient was encouraged to comply with low- salt diet. The patient and the patient's son were informed of incidental findings on CT scan includi ng pulmonary nodules which were nonspecific. He needs to have a repeat CT scan in 6 months to a year to ensure no change or possible resolution of the nodes to rule out malignancy. The patient also cleary s fatty liver disease and was counseled extensively on dietary restrictions and exercise regimen as f atty liver disease can lead to liver failure and need for liver transplant and even due to live r failure. The patient voiced understanding. Subsequent abdominal series showed improvement as the patient was able to ambulate, tolerate his diet, did not have any further pain with no nausea or vomi ting. He was then cleared for discharge from Dr. Iraheta's standpoint. The patient was then cleared a nd sent home in a stable condition. Activity: As tolerated. Medications: As per medication reconciliation list. Followup: Follow up with primary care physician in 2 to 3 days. Return to ER for worsening conditio n. Follow up with surgeon only as needed. Diet: [place] diet. Physical Examination: For physical examination findings, please see progress note dictated on day of discharge. Total time spent discharging the patient was 33 minutes. JOSE Voice ID: [id number] Report ID: [id number]
== END 2018-05-17 18:10 | disposition home or self-care (01) | DRG 390 ==
LOC: ER 10:33 → ERHOLD 13:32 → 2ND 14:58
PROVIDERS: ADMIT Family Medicine; ATTEND Family Medicine
PROC: 0D9670Z Drainage of Stomach with Drainage Device, Via Natural or Artificial Opening (ICD-10-PCS; principal; 2018-05-15)
DX: K56.51 Intestinal adhesions [bands], with partial obstruction (principal); D72.828 Other elevated white blood cell count; R91.1 Solitary pulmonary nodule; K76.0 Fatty (change of) liver, not elsewhere classified; I10 Essential (primary) hypertension; E78.2 Mixed hyperlipidemia
CPT/HCPCS: 36415; 71045; 74022; 74177; 80048; 80053; 80076; 83690; 83735; 83880; 84100; 84484; 85025; 85610; 93005; 94760; 96374; 96375; 99285; J0360; J0744; J1650; J2270; J2405; J7030; Q9967